=== PATIENT | male | born 1985 | race Asian ===

== ENCOUNTER 2018-06-03 13:13 | Inpatient (IN) | payer OTHER ==
[~2018-06-03] VITALS: Ht 162.6 cm; Wt 62.1 kg
[2018-06-03 13:20] VITALS: BP 112/76
[2018-06-03] MEDS ORDERED: KETOROLAC 60 MG/2 ML VIAL IM ONE (14:40)
[2018-06-03] MEDS ORDERED: ONDANSETRON 4 MG ODT PO ONE (14:40)
[2018-06-03] MEDS ORDERED: FAMOTIDINE 20 MG TAB PO ONE (14:40)
[2018-06-03 15:42] LABS: HEMATOCRIT 44.7 % (36-52); HEMOGLOBIN 14.7 g/dL (12.0-18.0); MEAN CORPUSCULAR HEMOGLOBIN 30 pg (27-31); MEAN CORPUSCULAR HGB CONC 33 g/dL (33-37); MEAN CORPUSCULAR VOLUME 89.8 fL (80-94); PLATELET COUNT (AUTO) 321 K/uL (140-450); RED BLOOD CELL COUNT(AUTO) 4.99 MIL/uL (4.20-6.10); RED CELL DISTRIBUTION WIDTH 12.8 % (11.6-13.7); WHITE BLOOD COUNT (AUTO) 14.5 K/uL (4.8-10.8)
[2018-06-03 15:44] LABS: BILIRUBIN,URINE NEGATIVE (NEGATIVE); BLOOD, URINE 3+ (NEGATIVE); COLOR,URINE YELLOW (YELLOW); LEUKOCYTE ESTERASE ,URINE NEGATIVE (NEGATIVE); NITRITE, URINE NEGATIVE (NEGATIVE); PH,URINE 6.5 (5.0-9.0); UGLUCOSE NEGATIVE (NEGATIVE)
[2018-06-03 15:45] LABS: APPEARANCE,URINE HAZY (CLEAR)
[2018-06-03 16:04] LABS: LYMPHOCYTES % (MANUAL) 6 % (20-46)
[2018-06-03 16:05] LABS: ANION GAP 10.1 (8-16); CARBON DIOXIDE 29.3 mmol/L (21-32); CREATININE 1.1 mg/dL (0.7-1.3); POTASSIUM 3.4 mmol/L (3.5-5.1)
[2018-06-03 16:06] LABS: RBC,URINE 20-50 /HPF (0-5); URINE AMORPHOUS URATE 1+ /HPF (None Seen); WBC,URINE 0-5 (RARE) /HPF (0-5)
[2018-06-03 16:12] LABS: ALBUMIN 4.5 g/dL (3.4-5.0); TOTAL BILIRUBIN 0.8 mg/dL (0.0-1.0)
[2018-06-03] MEDS ORDERED: LEVOFLOXACIN 500 MG/D5W PREMIX 100 ML IV ONE (16:35)
[2018-06-03] MEDS ORDERED: ONDANSETRON 4 MG/2 ML VIAL IVP PRN (20:55)
[2018-06-03] MEDS ORDERED: ACETAMINOPHEN 325 MG TAB PO PRN (20:55)
[2018-06-03] MEDS ORDERED: MORPHINE SULFATE 4 MG/ML SYR IVP PRN (20:55)
[2018-06-03] MEDS ORDERED: HYDROcodone/APAP 5/325 MG 1 TAB TAB PO PRN (20:55)
[2018-06-03 21:45] VITALS: BP 108/64
[2018-06-04] VITALS: BP 98/50
[2018-06-04 06:54] LABS: HEMOGLOBIN 14.7 g/dL (12.0-18.0)
[2018-06-04 07:15] LABS: HEMATOCRIT 43.6 % (36-52); MEAN CORPUSCULAR HEMOGLOBIN 30 pg (27-31); MEAN CORPUSCULAR HGB CONC 34 g/dL (33-37); MEAN CORPUSCULAR VOLUME 89.1 fL (80-94); PLATELET COUNT (AUTO) 307 K/uL (140-450); RED CELL DISTRIBUTION WIDTH 12.4 % (11.6-13.7); WHITE BLOOD COUNT (AUTO) 8.6 K/uL (4.8-10.8)
[2018-06-04 07:37] LABS: ALBUMIN 3.9 g/dL (3.4-5.0); ANION GAP 10.2 (8-16); CARBON DIOXIDE 30.7 mmol/L (21-32); CREATININE 1.1 mg/dL (0.7-1.3); POTASSIUM 3.9 mmol/L (3.5-5.1); TOTAL BILIRUBIN 0.6 mg/dL (0.0-1.0)
[2018-06-04 08:00] VITALS: BP 123/72
[2018-06-04 08:20] LABS: EOSINOPHILS % (MANUAL) 1 % (0-4); LYMPHOCYTES % (MANUAL) 20 % (20-46); MONOCYTES % (MANUAL) 8 % (5-12)
[2018-06-04 08:21] LABS: BASOPHILS % (MANUAL) 1 % (0-2)
[2018-06-04] MEDS: NACL 0.9% 1,000 ML IV SCH ×3 (09:24→21:54)
[2018-06-04 16:00] VITALS: BP 106/69
[2018-06-04] MEDS ORDERED: LEVOFLOXACIN 500 MG/D5W PREMIX 100 ML IV SCH (16:00)
[2018-06-05] VITALS: BP 93/55
[2018-06-05] MEDS: NACL 0.9% 1,000 ML IV SCH ×2 (02:52→10:24)
[2018-06-05 08:00] VITALS: BP 96/54
[2018-06-05] MEDS ORDERED: LEVO750T2 PO (13:36)
[2018-06-05] MEDS ORDERED: ACET-1182 PO (13:36)
== END 2018-06-05 15:55 | disposition home or self-care (01) | DRG 463 ==
LOC: MED 13:13 → MTU 20:59
PROVIDERS: ADMIT Hospitalist; ATTEND Hospitalist
DX: N12 Tubulo-interstitial nephritis, not specified as acute or chronic (principal); E87.6 Hypokalemia
CPT/HCPCS: 36415; 76700; 76705; 80053; 81001; 83605; 83690; 85025; 87040; 87081; 87086; 96365; 96372; 99285; J1885; J1956; J7030; Q0092; Q9967; S0119

== ENCOUNTER 2020-06-03 09:12 | Emergency (ER) | payer OTHER ==
[~2020-06-03] VITALS: Ht 165.1 cm; Wt 60.8 kg
[~2020-06-03 09:12] MED LIST: ACET-1182 PO; LEVO750T2 PO
[2020-06-03 09:20] VITALS: BP 121/78
[2020-06-03] MEDS ORDERED: KETOROLAC 60 MG/2 ML VIAL IM ONE (09:35)
[2020-06-03] MEDS ORDERED: NACL 0.9% 1,000 ML IV SCH (09:43)
[2020-06-03] MEDS ORDERED: KETOROLAC 30 MG/ML VIAL IVP ONE (09:45)
[2020-06-03 10:25] LABS: BASOPHILS # (AUTO) 0.1 K/uL (0.00-0.22); BASOPHILS % (AUTO) 0.3 % (0.0-2.0); EOSINOPHILS % (AUTO) 0.2 % (0.0-4.0); HEMOGLOBIN 15.4 g/dL (12.0-18.0); LYMPHOCYTES # (AUTO) 1.2 K/uL (2.0-11.5); LYMPHOCYTES % (AUTO) 6.8 % (20.5-51.1); MEAN CORPUSCULAR HEMOGLOBIN 30 pg (27-31); MEAN CORPUSCULAR HGB CONC 34 g/dL (33-37); MEAN CORPUSCULAR VOLUME 88.8 fL (80-94); MONOCYTES # (AUTO) 0.8 K/uL (0.8-1.0); MONOCYTES % (AUTO) 4.6 % (1.7-9.3); NEUTROPHILS # (AUTO) 14.9 K/uL (1.8-7.7); NEUTROPHILS % (AUTO) 88.1 % (42.2-75.2); PLATELET COUNT (AUTO) 341 K/uL (140-450); RED BLOOD CELL COUNT(AUTO) 5.19 MIL/uL (4.20-6.10); RED CELL DISTRIBUTION WIDTH 12.5 % (11.6-13.7); WHITE BLOOD COUNT (AUTO) 16.9 K/uL (4.8-10.8)
[2020-06-03 10:52] LABS: ANION GAP 13.8 (8-16); CARBON DIOXIDE 27.9 mmol/L (21-32); CREATININE 1.2 mg/dL (0.6-1.3); POTASSIUM 3.7 mmol/L (3.5-5.1); TOTAL BILIRUBIN 0.5 mg/dL (0.0-1.0)
[2020-06-03 10:53] LABS: ALBUMIN 4.6 g/dL (3.4-5.0)
[2020-06-03 10:54] VITALS: BP 101/67
[2020-06-03 10:55] LABS: COLOR,URINE YELLOW (YELLOW); PH,URINE 5.5 (5.0-9.0)
[2020-06-03 10:56] LABS: BILIRUBIN,URINE 1+ (NEGATIVE); BLOOD, URINE 3+ (NEGATIVE); LEUKOCYTE ESTERASE ,URINE NEGATIVE (NEGATIVE); NITRITE, URINE NEGATIVE (NEGATIVE); UGLUCOSE NEG (NEGATIVE)
[2020-06-03 10:58] LABS: APPEARANCE,URINE SLIGHTLY HAZY (CLEAR); WBC,URINE 0-5 /HPF (0-5)
== END 2020-06-03 10:54 | disposition home or self-care (01) ==
LOC: MED 09:12
DX: R10.9 Unspecified abdominal pain (principal); N20.0 Calculus of kidney; Z79.899 Other long term (current) drug therapy
CPT/HCPCS: 36415; 74176; 80053; 81001; 83690; 85025; 96361; 96374; 99284; J1885